=== PATIENT | female | born 1990 | race Two or more races ===

== ENCOUNTER 2021-07-12 11:08 | Emergency (ER) | payer OTHER ==
[~2021-07-12] VITALS: Ht 170.2 cm; Wt 72.6 kg
[2021-07-12] MEDS ORDERED: ZESTRIL10 M1 PO (11:18)
== END 2021-07-12 15:08 | disposition home or self-care (01) ==
LOC: ER 11:08
DX: R10.84 Generalized abdominal pain (principal); I10 Essential (primary) hypertension